=== PATIENT | female | born 1945 | race African-American/Black ===

== ENCOUNTER 2019-06-23 18:38 | Inpatient (IN) | payer OTHER ==
[~2019-06-23] VITALS: Ht 160 cm; Wt 78.8 kg
[2019-06-23] MEDS ORDERED: PRED20 PO (18:44)
[2019-06-23 18:53] LABS: HEMATOCRIT 37.4 % (36-46); HEMOGLOBIN 11.2 g/dL (12.0-16.0); MEAN CORPUSCULAR HEMOGLOBIN 25.6 pg (26.0-34.0); MEAN CORPUSCULAR HGB CONC 29.8 G/dL (31.0-37.0); MEAN CORPUSCULAR VOLUME 86 fL (80-100); PLATELET COUNT (AUTO) 152 K/uL (150-450); RED BLOOD CELL COUNT(AUTO) 4.37 MIL/uL (4.00-5.20); RED CELL DISTRIBUTION WIDTH 22.6 % (11.5-14.5)
[2019-06-23 18:56] LABS: GLUCOSE,POINT OF CARE 137 MG/DL (70-110)
[2019-06-23 19:02] LABS: ANION GAP 6 mmol/L (8-16); CALCIUM, TOTAL 9.7 mg/dL (8.8-10.5); CARBON DIOXIDE 29 mmol/L (22-29); CHLORIDE 99 mmol/L (98-107); CREATININE 2.21 mg/dL (0.60-1.30); GLOMERULAR FILTR. RATE CALC 22 mL/min (>60); GLUCOSE,RANDOM 149 mg/dL (70-110); POTASSIUM 5.9 mmol/L (3.5-5.1); SODIUM SERUM 134 mmol/L (136-145); UREA NITROGEN, BLOOD 59 mg/dL (7-18)
[2019-06-23 19:04] LABS: BAND NEUTROPHILS % (MANUAL) 0 % (0-5)
[2019-06-23 19:07] LABS: ALANINE AMINOTRANSFERASE 84 U/L (12-78); ALBUMIN 3.5 g/dL (3.4-5.0); ALKALINE PHOSPHATASE 77 U/L (46-116); ASPARTATE AMINOTRANSFERASE 68 U/L (15-37); BILIRUBIN,TOTAL 1.4 mg/dL (0.1-1.0); LIPASE 217 U/L (73-393); TOTAL PROTEIN, SERUM 6.4 g/dL (6.4-8.2)
[2019-06-23 19:11] LABS: LACTIC ACID 2.8 mmol/L (0.4-2.0)
[2019-06-23] MEDS ORDERED: ATOR10TA84 PO (19:17)
[2019-06-23] MEDS ORDERED: LISI-660 PO (19:17)
[2019-06-23 19:19] LABS: B-TYPE NATRIURETIC PEPTIDE > 5000 pg/mL (0-100)
[2019-06-23 19:23] LABS: LYMPHOCYTES % (MANUAL) 12 % (22-44); MONOCYTES % (MANUAL) 5 % (2-9); SEGMENTED NEUTROPHILS % 83 % (40-70)
[2019-06-23] MEDS ORDERED: ACETAMINOPHEN 325 MG TABLET PO PRN ×2 (20:30→21:30)
[2019-06-23] MEDS ORDERED: ASPIRIN 325 MG TABLET PO ONE (20:30)
[2019-06-23] MEDS ORDERED: 0.9% SODIUM CHLORIDE 10 ML SYRINGE IVP PRN (20:30)
[2019-06-23] MEDS ORDERED: ONDANSETRON HCL 4 MG/2 ML VIAL IVP PRN ×2 (20:30→21:30)
[2019-06-23] MEDS ORDERED: OXYGEN THERAPY IH SCH (20:30)
[2019-06-23] MEDS ORDERED: SODIUM POLYSTYRENE SULFONATE 15 GM/60 ML SUSPENSION BOTTLE PO ONE (20:30)
[2019-06-23] MEDS ORDERED: MAGNESIUM HYDROXIDE SUSPENSION 30 ML UDCUP PO PRN (21:30)
[2019-06-23] MEDS ORDERED: MORPHINE SULFATE 2 MG/ML SYRINGE IVP PRN (21:30)
[2019-06-23] MEDS ORDERED: BISACODYL 10 MG RECTAL RECTAL SUPPOSITORY PR PRN (21:30)
[2019-06-23] MEDS ORDERED: ZOLPIDEM TARTRATE 5 MG TABLET PO PRN (21:30)
[2019-06-23] MEDS ORDERED: HYDROCODONE/ACETAMINOPHEN 5-325 MG TABLET PO PRN (21:30)
[2019-06-23 21:52] LABS: APPEARANCE,URINE CLEAR (CLEAR); BILIRUBIN,URINE NEGATIVE (NEGATIVE); GLUCOSE, URINE (UA) NEGATIVE (NEGATIVE); KETONES,URINE NEGATIVE (NEGATIVE); LEUKOCYTE ESTERASE ,URINE NEGATIVE (NEGATIVE); NITRATE,URINE NEGATIVE (NEGATIVE); OCCULT BLOOD,URINE NEGATIVE (NEGATIVE); PROTEIN,URINE NEGATIVE (NEGATIVE)
[2019-06-23 22:02] LABS: BACTERIA,URINE Rare /HPF (None Seen); RBC,URINE 0-2 /HPF (0-2); SQUAMOUS EPITHELIAL CELL,UR Few /LPF (None Seen); WBC,URINE 0-2 /HPF (0-5)
[2019-06-24] VITALS: BP 113/68
[2019-06-24] MEDS: NITROGLYCERIN 2% (1 GM=INCH) PACKET TP SCH ×3 (00:22→12:00)
[2019-06-24] MEDS: HEPARIN SODIUM,PORCINE 5,000 UNITS/ML VIAL SQ SCH ×2 (00:23→09:06)
[2019-06-24 03:40] LABS: CALCIUM, TOTAL 9.4 mg/dL (8.8-10.5); CREATININE 1.94 mg/dL (0.60-1.30); POTASSIUM 5.1 mmol/L (3.5-5.1)
[2019-06-24 04:00] VITALS: BP 100/53
[2019-06-24 08:00] VITALS: BP 97/51
[2019-06-24] MEDS ORDERED: ATORVASTATIN CALCIUM 10 MG TABLET PO SCH (09:00)
[2019-06-24] MEDS ORDERED: DOCUSATE SODIUM 100 MG CAPSULE PO SCH (09:00)
[2019-06-24] MEDS ORDERED: FUROSEMIDE 20 MG/2 ML VIAL IVP SCH (09:00)
[2019-06-24] MEDS ORDERED: PANTOPRAZOLE SODIUM 40 MG DR TABLET PO SCH (09:00)
[2019-06-24] MEDS ORDERED: CARVEDILOL 6.25 MG TABLET PO SCH (09:00)
[2019-06-24] MEDS ORDERED: ASPIRIN 81 MG CHEWABLE TABLET PO SCH (09:00)
[2019-06-24 09:01] LABS: BASOPHILS % (AUTO) 0.5 % (0.0-2.0); EOSINOPHILS % (AUTO) 0.1 % (1.0-6.0); HEMATOCRIT 36.9 % (36-46); LYMPHOCYTES # (AUTO) 0.8 K/uL (1.0-4.8); LYMPHOCYTES % (AUTO) 7.3 % (22.0-44.0); MEAN CORPUSCULAR HEMOGLOBIN 25.6 pg (26.0-34.0); MEAN CORPUSCULAR HGB CONC 29.8 G/dL (31.0-37.0); MEAN CORPUSCULAR VOLUME 86 fL (80-100); MONOCYTES # (AUTO) 1.2 K/uL (0.1-1.0); MONOCYTES % (AUTO) 11.1 % (2.0-9.0); NEUTROPHILS # (AUTO) 9.1 K/uL (1.8-7.7); PLATELET COUNT (AUTO) 139 K/uL (150-450)
[2019-06-24 09:13] LABS: CALCIUM, TOTAL 9.6 mg/dL (8.8-10.5); CHOL/HDL RATIO 3.7 (3.9-5.7); CREATININE 2.01 mg/dL (0.60-1.30); MAGNESIUM 2.4 mg/dL (1.80-2.40); POTASSIUM 5.3 mmol/L (3.5-5.1)
[2019-06-24] MEDS ORDERED: ASPIRIN 81 MG EC TABLET PO SCH (11:00)
[2019-06-24 12:00] VITALS: BP 101/57
[2019-06-24 16:00] VITALS: BP 96/57
[2019-06-24] MEDS ORDERED: HEPARIN SODIUM,PORCINE 5,000 UNITS/ML VIAL SQ SCH (21:00)
== END 2019-06-24 16:35 | disposition short-term general hospital (02) | DRG 280 ==
LOC: EMS 18:40 → ICU 21:04
PROVIDERS: ADMIT Internal Medicine; ATTEND Internal Medicine
DX: I21.4 Non-ST elevation (NSTEMI) myocardial infarction (principal); G93.41 Metabolic encephalopathy; I50.43 Acute on chronic combined systolic (congestive) and diastolic (congestive) heart failure; I13.0 Hypertensive heart and chronic kidney disease with heart failure and stage 1 through stage 4 chronic kidney disease, or unspecified chronic kidney disease; N17.9 Acute kidney failure, unspecified; I48.20 Chronic atrial fibrillation, unspecified; N18.4 Chronic kidney disease, stage 4 (severe); J96.11 Chronic respiratory failure with hypoxia; I42.9 Cardiomyopathy, unspecified; I27.20 Pulmonary hypertension, unspecified; E87.5 Hyperkalemia; E78.5 Hyperlipidemia, unspecified; J84.10 Pulmonary fibrosis, unspecified; J44.9 Chronic obstructive pulmonary disease, unspecified; Z87.891 Personal history of nicotine dependence; Z99.81 Dependence on supplemental oxygen
CPT/HCPCS: 70450; 83605; 83735; 87081; 93005; 93306; 99291; G0378; G0480; J1644; J1940